=== PATIENT | female | born 1965 | race Caucasian/White ===

== ENCOUNTER → 2019-06-06 11:27 | Outpatient (CLI) | payer OTHER, SELFPAY ==
--- NOTE | ~2019-06-06 | MM_ITS ---
EXAMINATION: MM screening lori BI w soumya HISTORY: Screening mammogram TECHNIQUE: Craniocaudal and mediolateral oblique 3-D tomosynthesis images were obtained and synthetic 2-D images were generated. CAD analysis was submitted and interpreted. COMPARISON: 05/28/2015, 05/26/2014 bilateral digital screening mammogram examinations BREAST PARENCHYMAL COMPOSITION: There are scattered areas of fibroglandular density...... FINDINGS: There is no evidence of suspicious mass, calcification, or architectural distortion to sugg est malignancy in either breast. There has been no suspicious interval change. IMPRESSION: 1. No mammographic evidence of malignancy. 2. Recommend routine screening mammography in one year. BI-RADS Category 1: Negative Reviewed, dictated and finalized at location A. 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
== END ==
PROVIDERS: PCP Family Medicine; Visit Provider Family Medicine
DX: Z12.31 Encounter for screening mammogram for malignant neoplasm of breast (principal)
CPT/HCPCS: 77063; 77067

== ENCOUNTER 2020-01-08 09:04 | Outpatient (CLI) | payer OTHER, SELFPAY ==
--- NOTE | 2020-01-08 10:00 | NEURO_ITS ---
Patient Number: [id number] Impression: # Complains of right thumb, index and middle finger numbness. # Sensory Carpal Tunnel Syndrome at this stage. # No ulnar neuropathy. # Normal needle/EMG exam. # Clinical correlation recommended. Nerve Conduction Studies Anti Sensory Summary Table Stim Site NR Peak (ms) P-T Amp (?V) Site1 Site2 Delta-P (ms) Dist (cm) Piotr (m/s) Right Median Anti Sensory (2-3nd Digit) Wrist 3.8 74.0 Wrist 2-3nd Digit 3.8 14.0 37 Wrist 3.9 21.9 Wrist 2-3nd Digit 3.8 14.0 37 Right Radial Anti Sensory (Base 1st Digit) Wrist 2.3 16.1 Wrist Base 1st Digit 2.3 0.0 Right Ulnar Anti Sensory (5th Digit) Wrist 2.6 130.8 Wrist 5th Digit 2.6 14.0 54 Motor Summary Table Stim Site NR Onset (ms) O-P Amp (mV) Site1 Site2 Delta-0 (ms) Dist (cm) Piotr (m/s) Right Median Motor (Abd Poll Brev) Wrist 3.5 6.9 Elbow Wrist 5.0 26.0 52 Elbow 8.5 5.0 Right Ulnar Motor (Abd Dig Minimi) Wrist 3.3 5.4 A Elbow Wrist 4.9 28.0 57 A Elbow 8.2 4.3 F Wave Studies NR F-Lat (ms) L-R F-Lat (ms) Right Median (Mrkrs) (Abd Poll Brev) 26.84 Right Ulnar (Mrkrs) (Abd Dig Min) 27.81 EMG Side Muscle Nerve Root Ins Act Fibs Amp Dur Recrt Comment Right 1stDorInt Ulnar C8-T1 Nml Nml Nml Nml Nml Right Ext Indicis Radial (Post Int) C7-8 Nml Nml Nml Nml Nml Right Ext Digitorum Radial (Post Int) C7-8 Nml Nml Nml Nml Nml Right BrachioRad Radial C5-6 Nml Nml Nml Nml Nml Right PronatorTeres Median C6-7 Nml Nml Nml Nml Nml Right Abd Poll Brev Median C8-T1 Nml Nml Nml Nml Nml MTDD
== END 2020-01-08 09:05 | disposition home or self-care (01) ==
PROVIDERS: PCP Family Medicine; Visit Provider Family Medicine
DX: R20.2 Paresthesia of skin (principal)
CPT/HCPCS: 95886; 95909

== ENCOUNTER → 2020-07-12 11:32 | Outpatient (CLI) | payer OTHER, SELFPAY ==
--- NOTE | ~2020-07-12 | MM_ITS ---
EXAMINATION: MM screening lori BI w soumya HISTORY: Screening mammogram TECHNIQUE: Craniocaudal and mediolateral oblique 3-D tomosynthesis images were obtained and synthetic 2-D images were generated. CAD analysis was submitted and interpreted. COMPARISON: 06/06/2019, 05/28/2015, 05/26/2014 bilateral digital screening mammogram examinations BREAST PARENCHYMAL COMPOSITION: There are scattered areas of fibroglandular density. FINDINGS: There is no evidence of suspicious mass, calcification, or architectural distortion to sugg est malignancy in either breast. There has been no suspicious interval change. IMPRESSION: 1. No mammographic evidence of malignancy. 2. Recommend routine screening mammography in one year. 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
== END ==
PROVIDERS: PCP Family Medicine; Visit Provider Family Medicine
DX: Z12.31 Encounter for screening mammogram for malignant neoplasm of breast (principal)
CPT/HCPCS: 77063; 77067

== ENCOUNTER 2020-08-24 11:32 | Outpatient (CLI) | payer OTHER, SELFPAY | END 2020-08-24 11:33 | disposition home or self-care (01) | LOC: ANHCOVIDVC 11:32 | PROVIDERS: PCP Family Medicine | DX: Z23 Encounter for immunization (principal) | CPT/HCPCS: 0001A; 91300 ==

== ENCOUNTER 2020-09-14 11:30 | Outpatient (CLI) | payer OTHER, SELFPAY | END 2020-09-14 11:31 | disposition home or self-care (01) | LOC: ANHCOVIDVC 11:30 | PROVIDERS: PCP Family Medicine | DX: Z23 Encounter for immunization (principal) | CPT/HCPCS: 0002A; 91300 ==

== ENCOUNTER → 2020-10-16 | Outpatient (CLI) | payer OTHER, SELFPAY ==
[2020-10-16 17:56] LABS: SARS-CoV-2 RNA PCR Negative
== END | disposition home or self-care (01) ==
LOC: ANHCOVIDDT 01:14
PROVIDERS: PCP Family Medicine; Visit Provider Internal Medicine Gastroenterology
DX: Z01.812 Encounter for preprocedural laboratory examination (principal); Z20.822 Contact with and (suspected) exposure to COVID-19
CPT/HCPCS: C9803; U0003; U0005

== ENCOUNTER 2020-10-20 01:07 | Day surgery (SDC) | payer OTHER, SELFPAY ==
[2020-10-08 13:32] VITALS: BMI 22.2
--- NOTE | 2020-10-19 13:38 | WPDANESEPPF ---
Anes - Initial Pre Proc Eval Procedure: Operation Date: 10/20/20 12:00 Proposed Procedures p Screening Colonoscopy - Rip Odom DO Date/Time: 10/19/20 13:38 Surgeon: Rip Odom DO Pre Op Diagnosis: neoplasm screening, hx colon polyps Patient Data Age: 54 Gender: F Height: 1.6 m Weight: 57 kg Allergies Allergy/AdvReac Type Severity Reaction Status Date / Time naproxen Allergy Unknown Rash Verified 10/08/20 13:30 Home Medications Medication Instructions Recorded Confirmed Type Cbd Oil 50 mg PO DAILY 10/08/20 10/08/20 History lm-en-fhkt-FA-Ca carb-vit K 1 tablet PO DAILY 10/08/20 10/20/20 History [Women's Multivitamin] Patient hx anesthesia problems: none Family hx anesthesia problems: none PMFSH Past Medical History Medical History Abnormal colonoscopy 2014 polyps Basal cell carcinoma, eyelid Carpal tunnel syndrome on right History of menopause Postmenopausal atrophic vaginitis Scapulalgia Tension headache Family History Family History Mother Diabetes mellitus, Onset Age: 63 Hypertension, Onset Age: 63 Family history of elevated blood lipids, Onset Age: 63 Family history of cardiovascular disease, Onset Age: 63 Family history of pancreatic cancer, Onset Age: 63 Father Depression, Onset Age: 81 Malignant neoplasm of prostate, Onset Age: 81 Other Family history of arthritis Social History Social History Smoking status: Never smoker Alcohol intake: current Alcohol use details: rarely Living arrangements: with family Spiritual care concerns: No Anes - Eval Final PreProcedure Day of Procedure 10/19/20 13:38 Patient weight: normal Heart: regular rate and rhythm Lungs: clear to auscultation and normal air movement Airway: Mallampati scale class II Neurological: alert and oriented Last oral intake: >/= 8 hours ASA classification: II Emergent: no Anesthetic plan: proceed Anesthesia type and monitoring: general GIVS and standard monitoring Informed Consent: The patient's anesthetic plan and its attendant risks and benefits were discussed with the patient/family/POA. Questions were solicited and answers provided to the satisfaction of the patient/family/POA.
[2020-10-20 10:47] VITALS: BP 102/66; PULSE 101; RESP 18; TEMP 36.6; O2SAT 100; BMI 21.8
[2020-10-20] MEDS: LACTATED RINGERS 1,000 ML 150 ML IV CONT (11:13)
[2020-10-20] MEDS: ONDANSETRON INJ 4 MG/2 ML VIAL IV PUSH (11:14)
--- NOTE | 2020-10-20 12:35 | P.CONGI_ITS ---
GI Consult Note Consult date/time: 10/20/20 12:35 HPI: Reason for visit colonoscopy. This very pleasant lady seen in consultation request the primary physician. Screening and surveillance colonoscopy. The patient has history of colon polyps. Basal cell carcinoma. Recommendation: Colonoscopy. History: Very pleasant lady has some abdominal bloating. She has history of colon polyp. GI review systems otherwise unremarkable. She is here for colonoscopy. Physical examination: General: very pleasant patient in no acute distress. HEENT: Head was normocephalic sclerae is clear mouth without masses neck was supple. Heart: Rate rhythm regular without S3 or S4. Lungs: CTA. Abdomen: Soft with no guarding or rigidity. Bowel sounds were active. Neurologic: Cranial nerves 2 through 12 intact. No focal defects. No clonus. Musculoskeletal system: Revealed no joint tenderness or swelling no muscle atrophy. Extremities: Reveal no significant edema. Skin: Warm and dry with normal turgor. Mental status: intact. Patient is alert and oriented. Review of Systems Review of Systems: All systems reviewed & are unremarkable except as noted in HPI and below PMFSH Past Medical History Medical History Abnormal colonoscopy 2015 polyps Basal cell carcinoma, eyelid Carpal tunnel syndrome on right History of menopause Postmenopausal atrophic vaginitis Scapulalgia Tension headache Family History Family History Mother Diabetes mellitus, Onset Age: 63 Hypertension, Onset Age: 63 Family history of elevated blood lipids, Onset Age: 63 Family history of cardiovascular disease, Onset Age: 63 Family history of pancreatic cancer, Onset Age: 63 Father Depression, Onset Age: 81 Malignant neoplasm of prostate, Onset Age: 81 Other Family history of arthritis Social History Social History Smoking status: Never smoker Alcohol intake: current Alcohol use details: rarely Living arrangements: with family Spiritual care concerns: No Meds Home Medications and Allergies Home Medications Medication Instructions Recorded Confirmed Type Cbd Oil 50 mg PO DAILY 10/08/20 10/08/20 History uj-mj-yvwy-FA-Ca carb-vit K 1 tablet PO DAILY 10/08/20 10/20/20 History [Women's Multivitamin] Allergies Allergy/AdvReac Type Severity Reaction Status Date / Time naproxen Allergy Unknown Rash Verified 10/08/20 13:30 Vital Signs Vital Signs - 24 hr 10/20/20 10:47 Temperature 36.6 C Pulse Rate 101 H Respiratory Rate 18 Blood Pressure 102/66 Pulse Oximetry 100
[2020-10-20 13:04] VITALS: BP 92/52; PULSE 87; RESP 21; O2SAT 100
[2020-10-20 13:14] VITALS: BP 91/54; PULSE 86; RESP 18; O2SAT 100
[2020-10-20 13:24] VITALS: BP 97/53; PULSE 68; RESP 16; O2SAT 100
== END 2020-10-20 13:35 | disposition home or self-care (01) ==
PROVIDERS: PCP Family Medicine; Visit Provider Internal Medicine Gastroenterology
PROC: 0DJD8ZZ Inspection of Lower Intestinal Tract, Via Natural or Artificial Opening Endoscopic (ICD-10-PCS; CPT 45378; principal; 2020-10-20 12:00)
DX: Z12.11 Encounter for screening for malignant neoplasm of colon (principal); D12.2 Benign neoplasm of ascending colon; R14.0 Abdominal distension (gaseous)
CPT/HCPCS: 45380; 88305; C9803; J2405; J2704; J7120; U0003; U0005

== ENCOUNTER → 2021-08-27 08:00 | Outpatient (CLI) | payer OTHER, SELFPAY ==
--- NOTE | ~2021-08-27 | XR_ITS ---
EXAM: XR wrist LT min 3V HISTORY: M25.532 - Pain in left wrist COMPARISON: None available FINDINGS: Normal mineralization. No fracture or dislocation. No lytic or blastic lesion. Joint space s maintained. No erosion or periosteal change. Soft tissues within normal limits. Ulnar positive vari ance. IMPRESSION: No acute osseous finding the left wrist. Reviewed, dictated and finalized at location K.
== END ==
PROVIDERS: PCP Family Medicine; Visit Provider Family Medicine
DX: M25.532 Pain in left wrist (principal)
CPT/HCPCS: 73110

== ENCOUNTER → 2021-09-05 10:39 | Outpatient (CLI) | payer OTHER, SELFPAY ==
--- NOTE | ~2021-09-05 | US_ITS ---
EXAMINATION: US pelvic complete DATE: 09/05/2021 11:20 INDICATION: Pelvic discomfort and bloating TECHNIQUE: Multiple transabdominal sonographic images of the pelvis were obtained. COMPARISON: 10/12/2011 FINDINGS: The uterus measures 6 x 2 x 4.6 cm. The endometrial complex measures 4 mm. The right ovary is not visualized however no right adnexal abnormality is seen. The left ovary measures 2.2 x 1.5 x 2 .1 cm. There is normal vascular flow in the left ovary. There is no free fluid in the pelvis. IMPRESSION: 1. No sonographic correlate for the patient's symptoms. Reviewed, dictated and finalized at location A.
== END ==
PROVIDERS: PCP Family Medicine; Visit Provider Family Medicine
DX: R14.0 Abdominal distension (gaseous) (principal)
CPT/HCPCS: 76856

== ENCOUNTER → 2021-10-26 12:46 | Outpatient (CLI) | payer OTHER, SELFPAY ==
--- NOTE | ~2021-10-26 | MM_ITS ---
EXAMINATION: MM screening lori BI w soumya HISTORY: Screening mammogram TECHNIQUE: Craniocaudal and mediolateral oblique 3-D tomosynthesis images were obtained and synthetic 2-D images were generated. CAD analysis was submitted and interpreted. COMPARISON: 07/12/2020, 06/06/2019, 05/28/2015 bilateral screening mammogram examinations BREAST PARENCHYMAL COMPOSITION: There are scattered areas of fibroglandular density. FINDINGS: There is no evidence of suspicious mass, calcification, or architectural distortion to sugg est malignancy in either breast. There has been no suspicious interval change. IMPRESSION: 1. No mammographic evidence of malignancy. 2. Recommend routine screening mammography in one year. BI-RADS Category 1: Negative Reviewed, dictated and finalized at location A.
== END ==
PROVIDERS: PCP Family Medicine; Visit Provider Family Medicine
DX: Z12.31 Encounter for screening mammogram for malignant neoplasm of breast (principal)
CPT/HCPCS: 77063; 77067

== ENCOUNTER 2022-05-11 15:47 | Outpatient (CLI) | payer OTHER, SELFPAY ==
[2022-05-11 15:58] LABS: Eosinophils Percent Auto 0.8 % (0-4.4); Hematocrit 44.2 % (37.0-47.0); Hemoglobin 14.1 g/dL (12.0-15.0); Immature Granulocyte Absolute 0.01 K/mm3 (0.00-0.031); Immature Granulocyte Percent A 0.3 % (0-0.5); Lymphocytes Absolute Auto 1.23 K/mm3 (0.9-3.2); Lymphocytes Percent Auto 31.2 % (18.3-44.2); Mean Corpuscular HGB Conc 31.9 g/dl (32-36); Mean Corpuscular Hemoglobin 29.9 pg (26-34); Mean Corpuscular Volume 93.6 fl (80-100); Mean Platelet Volume 10.7 fl (7.4-10.4); Monocytes Absolute Auto 0.3 K/mm3 (0.1-0.6); Monocytes Percent Auto 6.3 % (2.6-8.5); Neutrophils Absolute Auto 2.4 K/mm3 (1.3-6.7); Neutrophils Percent Auto 60.4 % (45.5-73.1); Platelet Count Result 178 k/mm3 (150-375); Red Blood Count 4.72 M/mm3 (4.2-5.4); Red Cell Distribution Width 13.1 % (11.5-14.5); White Blood Count 3.9 K/mm3 (4.5-10.0)
[2022-05-11 16:42] LABS: Iron 92 ug/dL (37-170)
[2022-05-11 16:43] LABS: Alanine Aminotransferase 36 U/L (6-35); Albumin Level 4.9 g/dL (3.5-5.1); Alkaline Phosphatase 78 U/L (38-126); Anion Gap 8 mmol/L (8-16); Aspartate Amino Transferase 49 U/L (14-36); Bilirubin,Total 0.6 mg/dL (0.2-1.3); Blood Urea Nitrogen 15 mg/dL (7-17); Calcium 9.3 mg/dL (8.4-10.2); Carbon Dioxide 29 mmol/L (22-30); Chloride 105 mmol/L (98-107); Estimated Glomerular Filt Rate > 60; Glucose 105 mg/dL (65-110); Potassium 3.8 mmol/L (3.4-5.0); Sodium 142 mmol/L (137-145)
[2022-05-11 16:52] LABS: Percent Iron Saturation 26 % (20-50)
[2022-05-11 17:49] LABS: Folic Acid 13.9 ng/mL (2.76->20)
== END 2022-05-11 15:48 | disposition home or self-care (01) ==
LOC: ANHLAB 15:48
PROVIDERS: PCP Family Medicine; Visit Provider Internal Medicine Hematology & Oncology
DX: D72.819 Decreased white blood cell count, unspecified (principal)
CPT/HCPCS: 36415; 80053; 82607; 82728; 82746; 83540; 83550; 85025; 86038

== ENCOUNTER 2022-05-18 07:57 | Outpatient (CLI) | payer OTHER, SELFPAY ==
--- NOTE | ~2022-05-18 | US_ITS ---
EXAMINATION: US abdomen complete DATE: 05/18/2022 09:08 INDICATION: Leukopenia TECHNIQUE: Multiple grayscale and Doppler ultrasound images of the abdomen were obtained. COMPARISON: 10/12/2011 FINDINGS: Bowel gas obscures visualization of the pancreas. The visualized portions of the pancreas a re unremarkable. The liver is normal with normal echogenicity and echotexture. No surface nodularity. Normal hepatopetal flow in the main portal vein. The gallbladder is normal with no abnormal wall thi ckening, pericholecystic fluid or stones. The normal common bile duct measures 3 mm. There was no son ographic Amor sign. The visualized portions of the aorta and inferior vena cava are normal. The spleen is normal in appearance and measures 8.9 cm. The right kidney measures 10.5 x 4.0 x 4.4 cm . The left kidney measures 10.4 x 4.4 x 5.5 cm. The kidneys demonstrate normal parenchymal echogenici ty. There is no hydronephrosis. IMPRESSION: 1. No sonographic correlate for the patient's symptoms. Reviewed, dictated and finalized at location L. 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
== END 2022-05-18 07:58 | disposition home or self-care (01) ==
LOC: ANHIMG 08:01
PROVIDERS: PCP Family Medicine; Visit Provider Internal Medicine Hematology & Oncology
DX: D72.819 Decreased white blood cell count, unspecified (principal)
CPT/HCPCS: 76700

== ENCOUNTER 2022-11-29 11:26 | Outpatient (CLI) | payer OTHER, SELFPAY ==
[2022-11-29 11:58] LABS: Basophils Percent Auto 0.6 % (0.2-1.2); Eosinophils Percent Auto 0.9 % (0-4.4); Hematocrit 41.6 % (37.0-47.0); Hemoglobin 13.6 g/dL (12.0-15.0); Immature Granulocyte Absolute 0.01 K/mm3 (0.00-0.031); Immature Granulocyte Percent A 0.3 % (0-0.5); Lymphocytes Absolute Auto 1.26 K/mm3 (0.9-3.2); Lymphocytes Percent Auto 39.5 % (18.3-44.2); Mean Corpuscular HGB Conc 32.7 g/dl (32-36); Mean Corpuscular Hemoglobin 29.2 pg (26-34); Mean Corpuscular Volume 89.3 fl (80-100); Mean Platelet Volume 10.7 fl (7.4-10.4); Monocytes Absolute Auto 0.2 K/mm3 (0.1-0.6); Monocytes Percent Auto 6.6 % (2.6-8.5); Neutrophils Absolute Auto 1.7 K/mm3 (1.3-6.7); Neutrophils Percent Auto 52.1 % (45.5-73.1); Platelet Count Result 172 k/mm3 (150-375); Red Blood Count 4.66 M/mm3 (4.2-5.4); Red Cell Distribution Width 13.2 % (11.5-14.5); White Blood Count 3.2 K/mm3 (4.5-10.0)
[2022-11-29 15:34] LABS: Alanine Aminotransferase 24 U/L (6-35); Albumin Level 4.7 g/dL (3.5-5.1); Alkaline Phosphatase 64 U/L (38-126); Anion Gap 8 mmol/L (8-16); Aspartate Amino Transferase 36 U/L (14-36); Bilirubin,Total 0.8 mg/dL (0.2-1.3); Blood Urea Nitrogen 16 mg/dL (7-17); Calcium 9.5 mg/dL (8.4-10.2); Carbon Dioxide 29 mmol/L (22-30); Chloride 106 mmol/L (98-107); Estimated Glomerular Filt Rate > 60; Glucose 90 mg/dL (65-110); Potassium 3.9 mmol/L (3.4-5.0); Sodium 143 mmol/L (137-145)
[2022-12-06 04:32] LABS: Anti Nuclear Antibody Pattern Nuclear, Speckled; Anti Nuclear Antibody Titer 1:40 (Negative)
== END 2022-11-29 11:27 | disposition home or self-care (01) ==
LOC: ANHLAB 11:28
PROVIDERS: PCP Family Medicine; Visit Provider Internal Medicine Hematology & Oncology
DX: D72.819 Decreased white blood cell count, unspecified (principal)
CPT/HCPCS: 36415; 80053; 85025; 86038; 86039

== ENCOUNTER → 2023-01-02 11:27 | Outpatient (CLI) | payer OTHER, SELFPAY ==
--- NOTE | ~2023-01-02 | MM_ITS ---
EXAMINATION: MM screening [facility] BI w soumya HISTORY: Screening mammogram TECHNIQUE: Craniocaudal and mediolateral oblique 3-D tomosynthesis images were obtained and synthetic 2-D images were generated. CAD analysis was submitted and interpreted. COMPARISON: 10/26/2021, 07/12/2020, 06/06/2019 BREAST PARENCHYMAL COMPOSITION: There are scattered areas of fibroglandular density. FINDINGS: No suspicious mass, calcification, or architectural distortion are identified in either linda ast to suggest malignancy. There has been no suspicious interval change. IMPRESSION: 1. No mammographic evidence of malignancy. 2. Recommend routine screening mammography in one year. BI-RADS Category 1: Negative Reviewed, dictated and finalized at location A.
== END ==
PROVIDERS: PCP Family Medicine; Visit Provider Family Medicine
DX: Z12.31 Encounter for screening mammogram for malignant neoplasm of breast (principal)
CPT/HCPCS: 77063; 77067

== ENCOUNTER 2023-06-07 09:51 | Outpatient (CLI) | payer OTHER, SELFPAY ==
[2023-06-07 10:10] LABS: Basophils Percent Auto 0.9 % (0.2-1.2); Eosinophils Absolute Auto 0.1 K/mm3 (0-0.3); Eosinophils Percent Auto 1.4 % (0-4.4); Hematocrit 37.8 % (37.0-47.0); Hemoglobin 12.3 g/dL (12.0-15.0); Lymphocytes Absolute Auto 1.57 K/mm3 (0.9-3.2); Lymphocytes Percent Auto 44.7 % (18.3-44.2); Mean Corpuscular HGB Conc 32.5 g/dl (32-36); Mean Corpuscular Hemoglobin 29.7 pg (26-34); Mean Corpuscular Volume 91.3 fl (80-100); Mean Platelet Volume 10.1 fl (7.4-10.4); Monocytes Absolute Auto 0.3 K/mm3 (0.1-0.6); Monocytes Percent Auto 7.1 % (2.6-8.5); Neutrophils Absolute Auto 1.6 K/mm3 (1.3-6.7); Neutrophils Percent Auto 45.9 % (45.5-73.1); Platelet Count Result 166 k/mm3 (150-375); Red Blood Count 4.14 M/mm3 (4.2-5.4); Red Cell Distribution Width 13.2 % (11.5-14.5); White Blood Count 3.5 K/mm3 (4.5-10.0)
== END 2023-06-07 09:52 | disposition home or self-care (01) ==
LOC: ANHLAB 09:53
PROVIDERS: PCP Family Medicine; Visit Provider Internal Medicine Hematology & Oncology
DX: D72.819 Decreased white blood cell count, unspecified (principal)
CPT/HCPCS: 36415; 85025

== ENCOUNTER 2023-12-03 09:35 | Outpatient (CLI) | payer OTHER, SELFPAY ==
[2023-12-03 09:54] LABS: Basophils Percent Auto 1.2 % (0.2-1.2); Eosinophils Absolute Auto 0.1 K/mm3 (0-0.3); Eosinophils Percent Auto 1.5 % (0-4.4); Hematocrit 40.5 % (37.0-47.0); Hemoglobin 13.1 g/dL (12.0-15.0); Immature Granulocyte Absolute 0.01 K/mm3 (0.00-0.031); Immature Granulocyte Percent A 0.3 % (0-0.5); Lymphocytes Absolute Auto 1.63 K/mm3 (0.9-3.2); Lymphocytes Percent Auto 47.7 % (18.3-44.2); Mean Corpuscular HGB Conc 32.3 g/dl (32-36); Mean Corpuscular Hemoglobin 29.8 pg (26-34); Mean Platelet Volume 10.6 fl (7.4-10.4); Monocytes Absolute Auto 0.2 K/mm3 (0.1-0.6); Neutrophils Absolute Auto 1.5 K/mm3 (1.3-6.7); Neutrophils Percent Auto 42.3 % (45.5-73.1); Platelet Count Result 154 k/mm3 (150-375); Red Cell Distribution Width 13.3 % (11.5-14.5); White Blood Count 3.4 K/mm3 (4.5-10.0)
[2023-12-03 12:27] LABS: Alanine Aminotransferase 22 U/L (6-35); Albumin Level 4.6 g/dL (3.5-5.1); Alkaline Phosphatase 67 U/L (38-126); Anion Gap 8 mmol/L (4-12); Aspartate Amino Transferase 32 U/L (14-36); Bilirubin,Total 0.6 mg/dL (0.2-1.3); Blood Urea Nitrogen 16 mg/dL (7-17); Calcium 9.6 mg/dL (8.4-10.2); Carbon Dioxide 28 mmol/L (22-30); Chloride 105 mmol/L (98-107); Estimated Glomerular Filt Rate > 60; Glucose 89 mg/dL (65-110); Potassium 4.3 mmol/L (3.4-5.0); Sodium 141 mmol/L (137-145)
== END 2023-12-03 09:36 | disposition home or self-care (01) ==
LOC: ANHLAB 09:37
PROVIDERS: PCP Family Medicine; Visit Provider Internal Medicine Hematology & Oncology
DX: D72.819 Decreased white blood cell count, unspecified (principal)
CPT/HCPCS: 36415; 80053; 85025

== ENCOUNTER 2024-02-12 10:14 | Outpatient (CLI) | payer OTHER, SELFPAY ==
--- NOTE | ~2024-02-12 | MM_ITS ---
EXAMINATION: MM screening lori BI w soumya HISTORY: Screening TECHNIQUE: Craniocaudal and mediolateral oblique 3-D tomosynthesis images were obtained and synthetic 2-D images were generated. CAD analysis was submitted and interpreted. COMPARISON: Comparison to multiple prior studies sequentially, with oldest reviewed study dated 05/26. BREAST PARENCHYMAL COMPOSITION: Not dense: There are scattered areas of fibroglandular density. FINDINGS: There is no evidence of suspicious mass, calcification, or architectural distortion to sugg est malignancy in either breast. There has been no suspicious interval change. IMPRESSION: 1. No mammographic evidence of malignancy. 2. Recommend routine screening mammography in one year. BI-RADS Category 1: Negative Reviewed, dictated and finalized at location B.
== END 2024-02-12 10:15 | disposition home or self-care (01) ==
PROVIDERS: PCP Family Medicine; Visit Provider Family Medicine
DX: Z12.31 Encounter for screening mammogram for malignant neoplasm of breast (principal)
CPT/HCPCS: 77063; 77067

== ENCOUNTER 2025-01-20 08:44 | Emergency (ER) | payer OTHER, SELFPAY ==
[2025-01-20 08:54] VITALS: BP 112/78; PULSE 91; RESP 16; TEMP 36.6; O2SAT 100
[2025-01-20 09:08] LABS: EDSTREPNEGPOS1 Negative (Negative)
--- NOTE | 2025-01-20 09:22 | ED.URI ---
HPI - URI/Sore Throat General Chief Complaint: Upper Respiratory Infection Stated Complaint: Sore Throat Time Seen by Provider: 01/20/25 09:10 Source: patient and RN notes reviewed Mode of arrival: ambulatory Limitations: no limitations History of Present Illness HPI Narrative: 59-year-old female presents Express Care complaining of sore throat for 1 week. Patient said earlier this month she had a sore throat and sores throughout her mouth she saw her PCP and they were not sure what she had in the gave her Augmentin. Patient said symptoms improved on treatment. Then patient developed a sore throat 1 week ago and is not gotten much better. Patient denies any cough, congestion, runny nose, fevers, body aches, chills, nausea, vomiting, diarrhea, chest pain, difficulty breathing, difficulty swallowing, difficulty clearing secretions, or any other symptoms. Patient taking Tylenol ibuprofen with some relief. Related Data Home Medications ?Medication ?Instructions ?Recorded ?Confirmed ?Last Taken ?Type bpyrzvuo-jut-iypm-FA-Ca carb-vit K 1 tablet PO DAILY 10/08/20 01/06/25 10/15/20 08:00 History 18 mg iron-400 mcg-500 mg tablet (Women's Multivitamin) estradiol 0.01% (0.1 mg/gram) 1 g vaginal WEEKLY 08/30/23 01/06/25 Unknown History vaginal cream Allergies Allergy/AdvReac Type Severity Reaction Status Date / Time naproxen Allergy Unknown Rash Verified 01/20/25 08:46 Review of Systems Review of Systems: CONSTITUTIONAL: Denies fever, chills, or sweats. EYES: Denies visual changes, redness, or discharge. ENT: Denies rhinorrhea, congestion, or otalgia. Positive for sore throat. CARDIOVASCULAR: Denies chest pain, palpitations, or edema. RESPIRATORY: Denies cough or dyspnea. GASTROINTESTINAL: Denies abdominal pain, nausea, vomiting, or diarrhea. GENITOURINARY: Denies dysuria or hematuria. SKIN: Denies rash or itching. MUSCULOSKELETAL: Denies back pain, joint pain, or myalgia. NEUROLOGIC: Denies headache, numbness, or weakness. PSYCHIATRIC: Denies anxiety or depression. All other systems reviewed are negative, except as documented in HPI. [facility] Past Medical History Medical History Abnormal colonoscopy 2015 polyps Scapulalgia Carpal tunnel syndrome on right Postmenopausal atrophic vaginitis Thenar muscle atrophy of right hand History of menopause Basal cell carcinoma, eyelid Tension headache Family History Family History Mother Diabetes mellitus, Onset Age: 63 Hypertension, Onset Age: 63 Family history of elevated blood lipids, Onset Age: 63 Family history of cardiovascular disease, Onset Age: 63 Family history of pancreatic cancer, Onset Age: 63 Father Depression, Onset Age: 81 Malignant neoplasm of prostate, Onset Age: 81 Other Family history of arthritis Social History Social History Smoking status: Never smoker Alcohol intake: current Alcohol use details: rarely Substance use: never Substance use type: does not use Do You Feel Safe in your Home?: Yes Lack of Transportation: No Lack of Food: Never True Current Housing: I Have Housing Concerned About Future Housing: No Difficulty Paying Gas/Electric Bills: No Difficulty Paying for Meds: No Currently Unemployed: No Education: Associate Degree Difficulty w/ Childcare or Family Care: No Living arrangements: with family Spiritual care concerns: No Comments At the time of my signature, I reviewed and agree with the nursing past medical, surgical, social, and family history. There is no relevant family history pertinent to the patient complaint. Exam Narrative: GENERAL: This is a well-nourished, well-developed adult, in no apparent distress. They are non ill-appearing, nontoxic appearing. HEAD: normocephalic, atraumatic. EYES: Sclera clear/white. Conjunctiva normal. Vision is grossly intact. Extraocular movements intact EARS: External ears normal, auditory canals clear and without drainage, TMs normal without perforation. Hearing grossly intact. NOSE: External nose normal with no obvious nasal discharge, nasal turbinates without redness, no rhinorrhea. THROAT: Mucous membranes moist, posterior pharynx injected at swelling or exudate. Uvula midline. No suspicious lesions, sores, or rashes. OROPHARYNX: Tongue normal. Good dentition. No suspicious lesions, sores, or rashes NECK: Neck supple, non-tender without lymphadenopathy, masses or thyromegaly. CARDIOVASCULAR: Regular rate and rhythm without murmurs, gallops, or rubs. RESPIRATORY: Clear to auscultation. Breath sounds equal bilaterally. No wheezes, rales, or rhonchi. SKIN: warm, Dry, intact with no suspicious lesions or rash, good texture and turgor. NEURO: awake, alert, and oriented to person, place and time. There were no obvious focal neurologic abnormalities. EXTREMITIES: No joint tenderness, effusion, or edema noted. Course Course Emergency Course: Portions of this record may have been created with voice recognition software Level of Care: Express Care Visit Vital Signs Vital signs: Vital Signs Temperature 97.8 F 01/20/25 08:54 Pulse Rate 91 01/20/25 08:54 Respiratory Rate 16 01/20/25 08:54 Blood Pressure 112/78 01/20/25 08:54 Pulse Oximetry 100 01/20/25 08:54 Temperature 97.8 F 01/20/25 08:54 Pulse Rate 91 01/20/25 08:54 Respiratory Rate 16 01/20/25 08:54 Blood Pressure 112/78 01/20/25 08:54 Pulse Oximetry 100 01/20/25 08:54 Reviewed MDM - URI/Sore Throat MDM Narrative Medical decision making narrative: Rapid strep is negative. A throat culture is pending. Likely viral pharyngitis. Patient should previous pictures of her last sore throat earlier this month which appeared to possibly be fyjv-rafp-kwsrm or herpangina. No sores or lesions noted on exam today. Through shared decision making with with patient since her symptoms have been persistent for 1 week discussed antibiotic therapy verses waiting for throat culture results. Patient also states she has a follow-up with her PCP in 2 days. Patient elected to wait for culture results will have follow-up with her PCP in 2 days for re-evaluation of her sore throat. Discussed physical exam findings. Advised supportive measures and signs/symptoms to go to the ER. Pt is appropriate for outpt treatment and f/u. Differential Diagnosis Differential diagnosis: Likely upper respiratory infection, viral infection and pharyngitis Lab Data Attestation: I reviewed the patient's lab results. Labs: Lab Results 01/20/25 Range/Units 08:53 POC Grp A Strep Screen Negative (Negative) Critical Care Time Critical Care Time Critical Care Time: No Discharge Plan Discharge Clinical Impression: Pharyngitis Qualifiers: Pharyngitis/tonsillitis etiology: unspecified etiology Qualified Code(s): J02.9 - Acute pharyngitis, unspecified Patient Disposition: Home Condition: Stable Instructions: Antibiotic Form, Pharyngitis (ED) Additional Instructions: Your rapid strep swab was negative today at [facility]. You will be notified in a few days if the culture comes back positive for strep, and appropriate antibiotics will be called in for you at that time. Your symptoms are likely due to a viral illness, which is not treated with antibiotics. Viral symptoms can be present for up to 7-10 days. You may take ibuprofen 600 mg to 800 mg every 6-8 hours. Do not exceed more than 800 mg of ibuprofen per dose. Do not exceed more than 3200 mg ibuprofen in a day. You may take up to 1000 mg Tylenol every 6-8 hours. Do not exceed 1000 mg per dose, do exceed more than 4000 mg of Tylenol in a day. You may use salt water gargle and rinse distal to the throat. You may use aejp-qfi-hfwaddi throat lozenges, follow instructions on the label for dosing. Rest and stay hydrated. Follow up with your PCP in 2-3 days if symptoms are not improving. Go to the ER immediately if you develop difficulty breathing or swallowing Patient Language: Kenyan Prescriptions: No Action estradiol 0.01 % (0.1 mg/gram) cream 1 g vaginal WEEKLY amoxicillin-pot clavulanate 875-125 mg tablet 1 tablet PO BID Qty: 20 0RF Women's Multivitamin 18 mg iron-400 mcg-500 mg Tablet 1 tablet PO DAILY Follow-up/Referrals: Jennifer Hill MD [Primary Care Provider, [facility]] Time of Disposition: 09:21
== END 2025-01-20 09:23 | disposition home or self-care (01) ==
PROVIDERS: PCP Family Medicine
DX: J02.9 Acute pharyngitis, unspecified (principal); Z85.828 Personal history of other malignant neoplasm of skin
CPT/HCPCS: 87081; 87880; 99213; G0463

== ENCOUNTER 2025-02-16 10:37 | Outpatient (CLI) | payer OTHER, SELFPAY ==
--- NOTE | ~2025-02-16 | MM_ITS ---
EXAMINATION: MM screening lori BI w soumya HISTORY: Screening TECHNIQUE: Craniocaudal and mediolateral oblique 3-D tomosynthesis images were obtained and synthetic 2-D images were generated. CAD analysis was submitted and interpreted. COMPARISON: 01/02/2023 BREAST PARENCHYMAL COMPOSITION: There are scattered areas of fibroglandular density. FINDINGS: There is no evidence of suspicious mass, calcification, or architectural distortion to suggest malignancy. There has been no suspicious interval change. IMPRESSION: 1. No mammographic evidence of malignancy. Recommend routine screening mammography in one year. BI-RADS Category 2: Benign finding(s) Reviewed, dictated and finalized at location Q. IMPRESSION: 1. No mammographic evidence of malignancy. Recommend routine screening mammogra phy in one year. BI-RADS Category 2: Benign finding(s)
== END 2025-02-16 10:38 | disposition home or self-care (01) ==
LOC: MICIMG 10:38
PROVIDERS: PCP Family Medicine; Visit Provider Family Medicine
DX: Z12.31 Encounter for screening mammogram for malignant neoplasm of breast (principal)
CPT/HCPCS: 77063; 77067

== ENCOUNTER 2025-02-26 09:20 | Outpatient (CLI) | payer OTHER, SELFPAY ==
[2025-02-26 09:33] LABS: Hematocrit 40.0 % (37.0-47.0); Hemoglobin 12.8 g/dL (12.0-15.0); Immature Granulocyte Percent A 0.3 % (0-0.5); Lymphocytes Absolute Auto 1.45 K/mm3 (0.9-3.2); Mean Corpuscular HGB Conc 32.0 g/dl (32-36); Mean Corpuscular Hemoglobin 29.4 pg (26-34); Mean Corpuscular Volume 91.7 fl (80-100); Nucleated Red Blood Cells Absolute Auto 0.000 K/mm3 (0.0-0.012); Nucleated Red Blood Cells Perc 0.0 % (0.0-0.2); Platelet Count Result 151 k/mm3 (150-375); Red Blood Count 4.36 M/mm3 (4.2-5.4); White Blood Count 3.8 K/mm3 (4.5-10.0)
--- OUTSIDE RECORDS SUMMARY | 2025-02-26 09:48 | XMS_ITS | Clinical Summary ---
Author Organization [facility] Address [address] [place] [id number] Care Team Providers Care Director Of Epidemiology Name Role Phone Unavailable Primary Care Provider Unavailabl e Social History Tobacco Use Types Packs/Day Years Used Date Smoking Tobacco: Never Assessed Comments Unknown Sex and Gender Information Value Date Recorded Sex Assigned at Not on file Legal Sex Female 7:00 PM CDT Gender Identity Not on file Sexual Orientation Not on file Plan of Treatment Health Maintenance Due Date Last Done Comments Cervical Cancer Screening Pa p Smear (Age 30 to 64) Every 3 Years 1965 Colorectal Cancer Screening Colonoscopy (10 Years) 1965 Annual Physical 1968 Hepatitis C 12/05/1983 DTaP, Tdap and Td Vaccines ( 1 - Tdap) 1984 Cervical Cancer Screening Pa p with HPV Testing (Age 30 to 64) Every 5 Years 12/05/1995 Cervical Cancer Screening with HPV 12/05/1995 Mammogram Screening 2005 Pneumococcal Vaccine: 50+ Ye ars (1 of 1 - PCV) 12/05/2015 Zoster Vaccines (1 of 2) 12/05/2015 COVID-19 Vaccine ( - 2023-2 5 season) 2025 Influenza Adult (#1) 2025 Hepatitis A Vaccines Aged Out No long er eligible based on patient's age to complete this topic Meningococcal B Vaccine Aged Out No l onger eligible based on patient's age to complete this topic Meningococcal Vaccine Aged Out No skinny jaymie eligible based on patient's age to complete this topic RSV Immunizations Under 20 Months Aged Out No longer eligible based on patient's age to complete this topic
--- OUTSIDE RECORDS SUMMARY | 2025-02-26 09:48 | XMS_ITS | Clinical Summary ---
Author Organization [facility] Address [address] [place] [address] Care Team Providers Care Airplane Navigator Name Role Phone Jennifer Hill MD Primary Care Provider + Allergies Active Allergy Reactions Criticality Noted Date Comments Naproxen Rash Medium 11/17/2021 Medications estradioL (ESTRACE) 0.01 % (0.1 mg/gram) vaginal creamIndication s:Vaginal dryness, menopausal Apply nightly to vagina for 1 week, then Sunday// Sunday 42.5 g 11 5 04/27/20 26 Active multivit-minera z-[id number] tablet Take by mouth 02/18/20 25 Discontinu ed(Patient Reported) [id number] 2.5 mg-50 mg-18 iron/15 mL liquid Take by mouth 02/18/20 25 Discontinu ed(Patient Reported) turmeric, bulk, 95 % powder 02/18/20 25 Discontinu ed(Patient Reported) estradioL (ESTRACE) 0.01 % (0.1 mg/gram) vaginal creamIndication s:Vaginal dryness, menopausal Apply nightly to vagina for 1 week, then Sunday// Sunday 42.5 g 11 4 02/18/20 25 Discontinu ed(Reorder ) Active Problems Problem Noted Date Diagnosed Date 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 Basal cell carcinoma, eyelid 02/17/2025 Carpal tunnel syndrome on right 02/17/2025 Celiac disease 02/17/2025 Overview (02/17/2025): blood test +/ .2023 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 History of colonic polyps 02/17/2025 Overview (02/17/2025): colonoscopy : polyps/ repeat in 5 years History of COVID-19 02/17/2025 Overview (02/17/2025): 1.6.22 Hypoglycemia, unspecified 02/17/2025 Left wrist pain 02/17/2025 Migraine, intractable 02/17/2025 Mixed hyperlipidemia 02/17/2025 Pharyngitis 02/17/2025 Postmenopausal atrophic vaginitis 02/17/2025 Raynaud disease 02/17/2025 Rosacea 02/17/2025 Scapulalgia 02/17/2025 Sore throat 02/17/2025 Tension headache 02/17/2025 Thenar muscle atrophy of right hand 02/17/2025 Menopausal symptoms 02/10/2018 Abnormal Pap smear of cervix 02/10/2018 Dyspareunia due to medical condition in female p atient 02/08/2018 Encounters Date Type Department Care Team Description 02/17/2025 10:45 AM CDT Office Visit [facility] Medicine Obstetrics and Gynecology [address] 1st [address] [place] [address] Colleen Martell MD Well woman exam (Primary Dx); Vaginal dryness, menopausal from Last 3 Months Immunizations Immunization Administration Dates Next Due Hep A, Adult 12/05/2019,06/04/2019 Influenza, Quadrivalent, Rec ombinant, Egg Free, Preservative Free, Intramuscular 03/24/2021,06/04/2019 Tdap 12/17/2023,04/23/2014,01/22/2007 Surgical History Surgery Date Site/Laterality Comments OTHER SURGICAL HISTORY hospital stay-blockage in intestines stopped working Medical History Medical History Date Comments Hypoglycemia Joint pain Migraines Raynaud disease Bloating Carpal tunnel syndrome Cholinergic urticaria Basal cell carcinoma Thenar muscle atrophy of right hand Celiac disease Family History Medical History Relation Name Comments Heart disease Father tumor in nasal passage Father Diabetes Mother Hypertension Mother Pancreatic cancer Mother Relation Name Status Comments Father Mother Social History Tobacco Use Types Packs/Day Years Used Date Smoking Tobacco: Never Smokeless Tobacco: Never Tobacco Cessation:Counseling Given: Not Answered Alcohol Use Standard Drinks/Week Comments Yes 0 (1 standard drink = 0.6 oz pur e alcohol) AUDIT-C Answer Date Recorded Q1: How often do you have a drink containing alc ohol? Monthly or less 11/17/2021 Q2: How many drinks containi ng alcohol do you have on a typical day when you are drinking? 1 or 2 11/17/2021 Frequency of Binge Drinking Not on file 11/04 Comments No Sex and Gender Information Value Date Recorded Sex Assigned at Not on file Legal Sex Female 4:04 PM CDT Gender Identity Female 02/16/2025 4:55 PM CDT Sexual Orientation Straight 02/16/2025 4: 55 PM CDT Obstetrics History Para Term AB IAB SAB Ectopic Multiple Livin g Live Births 1 1 1 1 1 Date Outcome GA Total Labor Labor/2nd/3rd Weight Sex Type Anes PTL Chelsea A1 A5 Name Clin 1992 Term 3.6 kg (7 lb 15 oz) F CS-Un spec Living uterine artery rupture Complications:Other (Comment ) Comments Has another child- that she adopted! Last Filed Vital Signs Vital Sign Reading Time Taken Comments Blood Pressure 105/67 02/17/2025 10:50 AM CDT Pulse 72 02/17/2025 10:50 AM CDT Temperature - - Respiratory Rate - - Oxygen Saturation - - Inhaled Oxygen Concentration - - Weight 57.3 kg (126 lb 4.8 oz) 02/17/2025 10:50 AM CDT Height 160 cm (5' 2.99) 02/17/2025 10:50 AM CDT Body Mass Index 22.38 02/17/2025 10:50 AM CDT Plan of Treatment Health Maintenance Due Date Last Done Comments Breast Cancer Screening-Mammogram 1965 Colon Cancer Screening-Colonoscopy 1965 Depression Screening 1965 Hepatitis C Screening 1965 Hepatitis B Screening 12/05/1983 Zoster Vaccine (1 of 2) 12/05/2015 Cervical Cancer Screening 01/26/20242022, 01/25/2023 Covid-19 Vaccine (3 - 2024-2 6 season) 2025 09/14/2020, 08/24/2020 Influenza Vaccine (#1) 2025 , 06/04/2019 Regular Well Visit/Exam 18-64 02/17/2026, 02/05/2024, 01/25/2023 DTaP/Tdap/Td Vaccine (4 - Td or Tdap) 12/16/2033 12/17/2023, 04/23/2014, 01/22/2007 Pneumococcal vaccine <65 Aged Out No longer eligible based on patient's age to complete this topic Procedures Procedure Name Priority Date/Time Associated Diagnosis Comments HIGH RISK HPV DNA DETECTION WITH GENOTYPING Routine 01/25/2023 12:44 PM CDT Well woman exam from Last 3 Months or Most Recently Relevant to Health Maintenance Results * High Risk HPV DNA Detection with Genotyping (Molecular component) (01/25/2023 12:44 PM CDT) HPV HR 16 Not Detected Not Detected [facility] Comment:Collection date/time has been modified to: 12:44:00. Previous collection date/time: 05:30:00. HPV HR 18 Not Detected Not Detected [facility] Comment:Collection date/time has been modified to: 12:44:00. Previous collection date/time: 05:30:00. HPV HR Non 16/18 Not Detected Not Detected [facility] Comment: Collection date/time has been modified to: 12:44:00. Previous collection date/time: 05:30:00. Interpretive Data Nucleic acid amplification for detection of high-risk Human Papilloma virus (HPV) is performed by the Norma Jeanie 6800 HPV test. This assay specifically detects HPV-16 and HPV-18 genotypes. The following HPV genotypes are detected as high-risk HPV: HPV-31, 33, 35, ,39, 45, 51, 52, 56, 58, 59, 66, and 68. This assay has been approved by the [place] Food and Drug Administration for detection of HPV in cervical specimens collected by a physician using an endocervical brush/spatula or cervical broom and placed in the ThinPrep Pap Test PreservCyt collection containers. The performance characteristics of this test have been verified by the [facility] Molecular Infectious Disease laboratory. Correlate with separately reported cytology results, as applicable. Interpretive data last revised 22 Endocervical 01/25/2023 12:4 4 PM CDT 01/26/2023 2:02 PM CDT Narrative [facility] - 01/29/2023 10:49 AM CDT Clinical history and diagnosis->routine pap Number of vials->1 Testing type->Screening Last menstrual period (date if known)->menopausal Colleen Matrell MD LAB BODY FLUIDS AND ST OOLS ORDERABLES Edited Result - Final [facility] Department [place] [address] from Last 3 Months or Most Recently Relevant to Health Maintenance Insurance [facility] HMO/PPO Address: [facility] [address] [place] [address] [employer] [facility] HMO/PPO Address: [facility] [address] [place] [address] Care Teams Airplane Navigator Relationship Specialty Start Date End Date Jennifer Hill MD PCP - General Family Medicine 11/12/17
--- OUTSIDE RECORDS SUMMARY | 2025-02-26 09:48 | XMS_ITS | Clinical Summary ---
[facility] Organization [facility] Address [address] [place] [address] Care Team Providers Care Special Diet Cook Name Role Phone Jennifer Hill MD Primary Care Provider [phone] Allergies Active Allergy Reactions Criticality Noted Date Comments Naproxen Rash Medium 11/17/2021 Medications Multivit-Mineral -Iron-Lutein tablet Take by mouth. Active Active Problems No known active problems Encounters Date Type Department Care Team Description 02/25/2025 Orders Only [facility] Oncology and Hematology - [address] [place] [address] Erik Hernandez MD Leukopenia, unspecified type (Primary Dx) from Last 3 Months Family History Medical History Relation Name Comments No Known Problems Brother No Known Problems Daughter Heart Disease Father Prostate Cancer Father Diabetes Mother Pancreatic Cancer Mother Relation Name Status Comments Brother Alive Daughter Alive Father Mother Social History Tobacco Use Types Packs/Day Years Used Date Smoking Tobacco: Never Smokeless Tobacco: Never Tobacco Cessation:Counseling Given: Not Answered Alcohol Use Standard Drinks/Week Comments Yes 0 (1 standard drink = 0.6 oz pur e alcohol) socially Comments Unknown Sex and Gender Information Value Date Recorded Sex Assigned at Not on file Legal Sex Female 1:56 PM SWAGING MACHINE ADJUSTER Gender Identity Not on file Sexual Orientation Not on file Last Filed Vital Signs Vital Sign Reading Time Taken Comments Blood Pressure 108/77 12/12/2023 10:15 AM CDT Pulse 67 12/12/2023 10:15 AM CDT Temperature 36.6 C (97.8 F) 12/12/2023 10:15 AM CDT Respiratory Rate 16 12/12/2023 10:15 AM CDT Oxygen Saturation 95% 12/12/2023 10:15 AM CDT Inhaled Oxygen Concentration - - Weight 57.2 kg (126 lb) 12/12/2023 10:15 AM CDT Height 160 cm (5' 3) 05/11/2022 2:49 PM SWAGING MACHINE ADJUSTER Body Mass Index 22.32 05/11/2022 2:49 PM SWAGING MACHINE ADJUSTER Plan of Treatment Upcoming Encounters Date Type Department Care Team (Late st Contact Info) Description 03/02/2025 2:30 PM CDT Office Visit [facility] Oncology and Hematology - [address] [facility] [address] [place] [address] Erik Hernandez MD [address] [facility] [address] [place] [address] Health Maintenance Due Date Last Done Comments DTAP/TDAP/TD VACCINES (1 - Tdap) 1984 HEPATITIS B VACCINES (1 of 3 - 19+ 3-dose series) 11/06 HPV/Cotest (21-29) 1986 HPV/Cotest (30-65) 12/05/1995 BREAST CANCER SCREENING 2005 FIT-DNA Q 3 years 2010 FIT/FOBT Q 1 year 2010 Flex Sig/CT Colonography Q 5 years 2010 ZOSTER VACCINE (1 of 2) 12/05/2015 Preventative Visit- Commercial 05/07/2024 01/25/2023 INFLUENZA VACCINE (#1) 2024 CERVICAL CANCER SCREENING 01/25/2026 PAP SMEAR 01/25/2026 01/25/2023 COLORECTAL SCREENING 10/20/2030 10/20/2020 Colorectal Cancer Screening 10/20/2030 Insurance [employer] RU[employer] [id number] [employer] [id number] Care Teams Special Diet Cook Relationship Specialty Start Date End Date Jennifer Hill MD [address] [place] [address] [address] PCP - General Family Practice 12/13/22
--- OUTSIDE RECORDS SUMMARY | 2025-02-26 09:48 | XMS_ITS | Encounter Summary ---
Author Organization [facility] Address [address] [place] [address] Care Team Providers Care Entertainment Director Name Role Phone Jennifer Hill MD Primary Care Provider [phone] Encounter Details Date Type Department Care Team ([facility] Contact Info) Description 02/25/2025 Orders Only 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 Oncology and Hematology - [address] [place] [address] Erik Hernandez MD [address] [employer] [address] [place] [address] Scheduled Orders Name Type Priority Associated Diagnoses Orde r Schedule BASIC METABOLIC PANEL Lab Routine Leukopenia, unspecified type Expected: 02/25/2025, Expires: 02/25/2026 CBC WITH DIFFERENTIAL Lab Routine Leukopenia, unspecified type Expected: 02/25/2025, Expires: 02/25/2026 documented as of this encounter Visit Diagnoses Diagnosis Leukopenia, unspecified type- Primary documented in this encounter Care Teams Entertainment Director Relationship Specialty Start Date End Date Jennifer Hill MD [facility] [address] [address] PCP - General Family Practice 12/13/22 documented as of this encounter
--- OUTSIDE RECORDS SUMMARY | 2025-02-26 09:48 | XMS_ITS | Clinical Summary ---
Author Organization [facility] Address [address] [address] Phone Care Team Providers Care Supervisor Industrial Arts Education Name Role Phone Jennifer Hill MD Primary Care Provider [phone] Social History Tobacco Use Types Packs/Day Years Used Date Smoking Tobacco: Never Assessed Comments Unknown Sex and Gender Information Value Date Recorded Sex Assigned at Not on file Legal Sex Female 10:01 PM CDT Gender Identity Not on file Sexual Orientation Not on file Plan of Treatment Health Maintenance Due Date Last Done Comments Hepatitis C Virus (HCV) Screening 1965 TdaP Immunization 1965 Hepatitis B Immunization (1 of 3 - 19+ 3-dose series) 1984 Pap Smear 1986 Cervical Cancer Screening (CCS) 12/05/1995 HPV/Cotest 12/05/1995 Cologuard 2010 Immunochemical Fecal Occult Blood 2010 Pneumococcal Immunization (5 0+ years) (1 of 1 - PCV) 12/05/2015 Zoster Immunization (1 of 2) 12/05/2015 Influenza Immunization (#1) 2025 SARS-COV-2 Immunization ( season) 2025 Colonoscopy 10/20/2025 10/20/2020, 11/17/2011 Colorectal Cancer Screening 10/20/2025 Respiratory Syncytial Virus (RSV) Immunization (Adult) (1 - 1-dose 75+ series) 2040 Human Papillomavirus (HPV) Immunization Aged Out No longer eligible b ased on patient's age to complete this topic Meningococcal Immunization (ACWY) Aged Out No longer eligible b ased on patient's age to complete this topic Rotavirus Immunization Aged Out No lo nger eligible based on patient's age to complete this topic Procedures Procedure Name Priority Date/Time Associated Diagnosis Comments COLONOSCOPY Routine 10/20/2020 from Last 3 Months or Most Recently Relevant to Health Maintenance Results * COLONOSCOPY (10/20/2020) Rip Odom DO PROCEDURE/MINOR SURGICAL ORDERA BLES Final Result from Last 3 Months or Most Recently Relevant to Health Maintenance Insurance Care Teams Supervisor Industrial Arts Education Relationship Specialty Start Date End Date Jennifer Hill MD PCP - General Family Medicine 09/27/20
[2025-02-26 10:04] LABS: Anion Gap 6 mmol/L (4-12); Blood Urea Nitrogen 19 mg/dL (7-17); Calcium 9.0 mg/dL (8.4-10.2); Carbon Dioxide 28 mmol/L (22-30); Chloride 106 mmol/L (98-107); Estimated Glomerular Filt Rate > 60; Glucose 85 mg/dL (65-110); Potassium 4.1 mmol/L (3.4-5.0); Sodium 140 mmol/L (137-145)
== END 2025-02-26 09:21 | disposition home or self-care (01) ==
LOC: ANHLAB 09:22
PROVIDERS: PCP Family Medicine; Visit Provider Internal Medicine Hematology & Oncology
DX: D72.819 Decreased white blood cell count, unspecified (principal)
CPT/HCPCS: 36415; 80048; 85025

== ENCOUNTER 2025-05-01 12:36 | Outpatient (CLI) | payer OTHER, SELFPAY ==
--- NOTE | ~2025-05-01 | CT_ITS ---
EXAMINATION: CT sinus wo con DATE: 05/01/2025 12:52 INDICATION: Chronic sinusitis TECHNIQUE: Computed tomography (CT) of the paranasal sinuses was performed without intravenous contrast. The dose-length product was 305.77 mGy-cm. Automated exposure control and iterative reconstruction technique were employed. COMPARISON: None FINDINGS: Rightward nasal septal deviation. Mild mucosal thickening of the maxillary sinuses. Mastoids are pneumatized. Ostiomeatal units are patent bilaterally. No depressed skull fractures. IMPRESSION: 1. Mild maxillary sinus disease. Reviewed, dictated and finalized at location O. RIGHT EXPERT
--- OUTSIDE RECORDS SUMMARY | 2025-05-01 12:41 | XMS_ITS | Clinical Summary ---
Author Organization [facility] Address [address] [place] [address] Care Team Providers Care Money Market Clerk Name Role Phone Unavailable Primary Care Provider [...] Vaccines (1 of 2) 12/05/2015 COVID-19 Vaccine (2024-2 6 season) 2025 Influenza Adult (#1) 2025 Hepatitis [...]
--- OUTSIDE RECORDS SUMMARY | 2025-05-01 12:41 | XMS_ITS | Clinical Summary ---
Author Organization [facility] Address [address] [address] Phone Care Team Providers Care Vocational Rehabilitation Technician Name Role Phone Jennifer Hill MD Primary Care Provider [phone] Social History Tobacco Use Types Packs/Day Years [...] Relevant to Health Maintenance Insurance Care Teams Vocational Rehabilitation Technician Relationship Specialty Start Date End Date Jennifer Hill MD PCP - General Family Medicine 09/27/20
--- OUTSIDE RECORDS SUMMARY | 2025-05-01 12:41 | XMS_ITS | Clinical Summary ---
Author Organization [facility] Address [address] [place] [address] Care Team Providers Care Order Worker Name Role Phone Jennifer Hill MD Primary Care Provider + Allergies Active Allergy Reactions Criticality Noted Date Comments Naproxen Rash Medium 11/17/2021 Medications estradioL (ESTRACE) 0.01 % (0.1 mg/gram) vaginal creamIndication s:Vaginal dryness, menopausal Apply nightly to vagina for 1 week, then Sunday// Sunday 42.5 g 11 02/17/2025 Active Active Problems Problem Noted Date Diagnosed Date [...] Description 02/17/2025 10:45 AM CDT Office Visit [facility] Medicine Obstetrics and Gynecology [address] [facility] 1st Floor [address] [place] [address] Colleen Martell MD Well woman exam (Primary [...] HPV HR 16 Not Detected Not Detected [facility] Comment:Collection date/time has been modified to: 12:44:00. Previous collection date/time: 05:30:00. HPV HR 18 Not Detected Not Detected [facility] Comment:Collection date/time has been modified to: 12:44:00. Previous collection date/time: 05:30:00. HPV HR Non 16/18 Not Detected Not Detected [facility] Comment: Collection date/time has been modified to: [...] this test have been verified by the [facility] Molecular Infectious Disease laboratory. Correlate with separately reported cytology results, as applicable. Interpretive data last revised 22 Endocervical 01/25/2023 12:4 4 PM CDT 01/26/2023 2:02 PM CDT Narrative [facility] - 01/29/2023 10:49 AM CDT Clinical history and diagnosis->routine pap Number of vials->1 Testing type->Screening Last menstrual period (date if known)->menopausal us Colleen Martell MD LAB BODY FLUIDS AND ST OOLS ORDERABLES Edited Result - Final [facility] Department [place] [address] from Last 3 Months or Most Recently Relevant to Health Maintenance Insurance [employer] Care Teams Order Worker Relationship Specialty Start Date End Date Jennifer Hill MD PCP - General Family Medicine 11/12/17
--- OUTSIDE RECORDS SUMMARY | 2025-05-01 12:41 | XMS_ITS | Clinical Summary ---
Author Organization [facility] Address [address] [place] [address] Care Team Providers Care Redipper Name Role Phone Jennifer Hill MD Primary Care Provider [phone] Allergies Active Allergy Reactions Criticality Noted Date Comments Naproxen Rash Medium 11/17/2021 Medications Multivit-Mineral -Iron-Lutein tablet Take by mouth. Active Active Problems No known active problems Encounters Date Type Department Care Team Description 04/14/2025 External Device Data ST[facility] ABSTRACTION Provider, Abstract 03/24/2025 External Device Data STL ABSTRACTION Provider, Abstract 03/24/2025 External Device Data STL ABSTRACTION Provider, Abstract 03/04/2025 External Device Data STL ABSTRACTION Provider, Abstract 03/04/2025 External Device Data STL ABSTRACTION Provider, Abstract 03/03/2025 External Device Data STL ABSTRACTION Provider, Abstract 03/02/2025 2:30 PM CDT Office Visit [facility] Oncology and Hematology - [address] [place] [address] Erik Hernandez MD Leukopenia, unspecified type (Primary Dx) 02/26/2025 Orders Only [facility] Oncology and Hematology - [address] [place] [address] Erik Hernandez MD 02/25/2025 Orders Only [facility] Oncology and Hematology - [address] [place] [address] Erik Hernandez MD Leukopenia, unspecified [...] on file Legal Sex Female 1:56 PM FARM HAND Gender Identity Not on file Sexual Orientation Not on file Last Filed Vital Signs Vital Sign Reading Time Taken Comments Blood Pressure 111/65 03/02/2025 2:23 PM CDT Pulse 90 03/02/2025 2:23 PM CDT Temperature 36.6 C (97.9 F) 03/02/2025 2:23 PM CDT Respiratory Rate 14 03/02/2025 2:23 PM CDT Oxygen Saturation 95% 03/02/2025 2:23 PM CDT Inhaled Oxygen Concentration - - Weight 56.7 kg (125 lb) 03/02/2025 2:23 PM CDT Height 160 cm (5' 3) 05/11/2022 2:49 PM FARM HAND Body Mass Index 22.14 05/11/2022 2:49 PM FARM HAND Plan of Treatment Upcoming Encounters Date Type Department Care Team (Late st Contact Info) Description 02/01/2026 10:00 AM CDT Office Visit [facility] Oncology and Hematology - [address] [facility] [address] [place] [address] Erik Hernandez MD [address] [facility] [address] [place] [address] Health Maintenance Due Date Last Done Comments HEPATITIS B VACCINES (1 of 3 - 19+ 3-dose series) 1984 HPV/Cotest (21-29) 1986 HPV/Cotest (30-65) 12/05/1995 BREAST CANCER SCREENING 2005 FIT-DNA Q 3 years 2010 FIT/FOBT Q 1 year 2010 Flex Sig/CT Colonography Q 5 years 2010 ZOSTER VACCINE (1 of 2) 12/05/2015 INFLUENZA VACCINE (#1) 2024 03/24/2021, 2019 CERVICAL CANCER SCREENING 01/25/2026 PAP SMEAR 01/25/2026 01/25/2023 COLORECTAL SCREENING 10/20/2030 10/20/2020 Colorectal Cancer Screening 10/20/2030 DTAP/TDAP/TD VACCINES (4 - T d or Tdap) 12/16/2033 12/17/2023, 04/23/2014, 01/22/2007 Procedures Procedure Name Priority Date/Time Associated Diagnosis Comments BASIC METABOLIC PANEL Routine 02/26/2025 11:57 AM CDT from Last 3 Months Results * BASIC METABOLIC PANEL (02/26/2025 11:57 AM CDT) Blood Erik Hernandez MD CHEMISTRY ORDERABLES Final Resu lt from Last 3 Months Insurance BUC[employer] RULE [id number] BUC[employer] RULE [id number] Care Teams Redipper Relationship Specialty Start Date End Date Jennifer Hill MD [address] [facility] [address] [id number] PCP - General Family Practice 12/13/22
== END 2025-05-01 12:37 | disposition home or self-care (01) ==
PROVIDERS: PCP Family Medicine; Visit Provider Otolaryngology Otolaryngology/Facial Plastic Surgery
DX: J32.9 Chronic sinusitis, unspecified (principal)
CPT/HCPCS: 70486